=== PATIENT | female | born 1985 | race Caucasian/White ===

== ENCOUNTER 2018-07-23 19:44 | Emergency (ER) | payer BC ==
[2018-07-23] MEDS ORDERED: Sodium Chloride 0.9% 1000 ML 1,000 ML IV STA (20:37)
[2018-07-23] MEDS ORDERED: Phenergan 25 MG INJ IV ONE (20:37)
--- NOTE | 2018-07-23 20:37 | ERPHSYRPT ---
- History of Present Illness Time Seen by Provider: 07/23/18 20:33 Historian: patient Exam Limitations: no limitations Patient Subjective Stated Complaint: Abdominal pain/Vomitting Triage Nursing Assessment: Patient ambulated back to ED and transferred self to bed. Patient A+O X 3. Patient complains of upper abdominal pain. Patient states monday she had diarrhea and hasn't had a bowel movement since. Patient was seen in [facility] today for same issue and was given Zofran for N/V. Patient states she feels pressure in upper abdomen and keeps belching. Patient' s bowel sounds present X 4. Abdomen soft and round. Patient has been vomitting after every meal since Monday. Pain 02/20. Physician History: The patient is a 32-year-old obese female complaining of mild abdominal pain and vomiting that began on Monday or 3 days ago. On Monday she also had significant amounts of diarrhea. The diarrhea has resolved. Now she states she is bloated. She denies fever or chills. She is mildly lightheaded. Today she has only urinated 2 times. She has tried to drink small sips of fluid the becomes nauseated each time. She went to [facility] this morning and was given Zofran. Zofran has not really helped. Her past medical history is significant for depression, cholecystectomy, and tubal ligation. Timing/Duration: day(s) (3), gradual onset Activities at Onset: none Quality: aching Abdominal Pain Onset Location: epigastric Pain Radiation: no radiation Severity of Pain-Max: mild Severity of Pain-Current: mild Modifying Factors: Improves With: nothing Associated Symptoms: diarrhea, nausea, vomiting Previous symptoms: no prior history Allergies/Adverse Reactions: Sulfa (Sulfonamide Antibiotics) Allergy (Verified 07/23/18 20:10) Home Medications: Vilazodone HCl [Viibryd] 20 mg PO DAILY 07/23/18 [History] Hx Tetanus, Diphtheria Vaccination/Date Given: No Hx Influenza Vaccination/Date Given: Yes Hx Pneumococcal Vaccination/Date Given: No Immunizations Up to Date: Yes - Review of Systems Constitutional: No Fever, No Chills Eyes: No Symptoms Ears, Nose, & Throat: No Symptoms Respiratory: No Cough, No Dyspnea Cardiac: No Chest Pain, No Edema, No Syncope Abdominal/Gastrointestinal: Abdominal Pain, Nausea, Vomiting, Diarrhea Genitourinary Symptoms: No Dysuria Musculoskeletal: No Back Pain, No Neck Pain Skin: No Rash Neurological: No Dizziness, No Focal Weakness, No Sensory Changes Psychological: No Symptoms Endocrine: No Symptoms Hematologic/Lymphatic: No Symptoms Immunological/Allergic: No Symptoms All Other Systems: Reviewed and Negative - Past Medical History Pertinent Past Medical History: Yes Neurological History: No Pertinent History ENT History: No Pertinent History Cardiac History: No Pertinent History Respiratory History: Asthma Endocrine Medical History: No Pertinent History Musculoskeletal History: No Pertinent History GI Medical History: GERD, Irritable Bowel History: No Pertinent History Psycho-Social History: Depression Female Reproductive Disorders: Other Other Medical History: PCOS - Past Surgical History Past Surgical History: Yes Neuro Surgical History: No Pertinent History Cardiac: No Pertinent History Respiratory: No Pertinent History Gastrointestinal: Cholecystectomy Genitourinary: No Pertinent History Musculoskeletal: No Pertinent History Female Surgical History: Other Other Surgical History: Ablation, two cyst removed from ovaries - Social History Smoking Status: Never smoker Exposure to second hand smoke: No Drug Use: none Patient Lives Alone: No - Female History Hx Last Menstrual Period: Ablation 2012 Hx Now: No - Nursing Vital Signs Nursing Vital Signs: Initial Vital Signs Temperature 98.0 F 07/23/18 20:00 Pulse Rate 69 07/23/18 20:00 Respiratory Rate 18 07/23/18 20:00 Blood Pressure 107/59 07/23/18 20:00 O2 Sat by Pulse Oximetry 97 07/23/18 20:00 Pain Scale Pain Intensity 7 - Physical Exam General Appearance: no apparent distress, obese Eye Exam: PERRL/EOMI, eyes nml inspection Ears, Nose, Throat Exam: normal ENT inspection, pharynx normal, moist mucous membranes Neck Exam: normal inspection, non-tender, supple, full range of motion Respiratory Exam: normal breath sounds, lungs clear, No respiratory distress Cardiovascular Exam: regular rate/rhythm, normal heart sounds Gastrointestinal/Abdomen Exam: tenderness (epigastric) Pelvic Exam: not done Rectal Exam: not done Back Exam: normal inspection, normal range of motion, No CVA tenderness, No vertebral tenderness Extremity Exam: normal inspection, normal range of motion, pelvis stable Neurologic Exam: alert, oriented x 3, cooperative, normal mood/affect, nml cerebellar function, sensation nml, No motor deficits Skin Exam: normal color, warm, dry SpO2 Interpretation: normal SpO2: 97 Oxygen Delivery: Room Air - CT Exams Abdomen/Pelvis CT Interpretation: Tele-radiologist Report (per Dr Bear), No appendicitis, Other (appendicolith without appendicitis) Ordered Tests: Active Orders 24 hr Category Date Time Status Clean Catch Urine Specimen STAT Care 07/23/18 20:37 Active IV Insertion STAT Care 07/23/18 20:37 Active ABDOMEN AND PELVIS W/0 CONTRAS [CT] Stat Exams 07/23/18 20:37 Taken CBC W DIFF Stat Lab 07/23/18 20:50 Completed CMP Stat Lab 07/23/18 20:50 Completed CULTURE,URINE Stat Lab 07/23/18 20:50 Received HCG QUALITATIVE,SERUM Stat Lab 07/23/18 20:50 Completed LIPASE Stat Lab 07/23/18 20:50 Completed Lactic Acid Stat Lab 07/23/18 20:37 Completed UA W/RFX UR CULTURE Stat Lab 07/23/18 20:50 Completed Medication Summary Discontinued Medications Generic Name Dose Route Start Last Admin Trade Name Freq PRN Reason Stop Dose Admin Sodium Chloride 1,000 mls @ 999 mls/hr 07/23/18 20:37 07/23/18 21:01 Sodium Chloride 0.9% 1000 Ml IV 07/23/18 21:37 999 mls/hr .Q1H1M STA Administration Sodium Chloride Confirm 07/23/18 21:00 Sodium Chloride 0.9% 1000 Ml Administered 07/23/18 21:01 Dose 1,000 mls @ ud .ROUTE .STK-MED ONE Promethazine HCl 25 mg 07/23/18 20:37 07/23/18 21:02 Phenergan 25 Mg Inj IV 07/23/18 20:38 25 mg STAT ONE Administration Promethazine HCl Confirm 07/23/18 21:00 Phenergan 25 Mg Inj Administered 07/23/18 21:01 Dose 25 mg .ROUTE .STK-MED ONE Lab/Rad Data: Laboratory Result Diagrams 07/23/18 20:50 07/23/18 20:50 Laboratory Results 07/23/18 07/23/18 07/23/18 Range/Units 20:50 20:50 20:50 WBC (4.0-10.5) K/mm3 RBC (4.1-5.4) M/mm3 Hgb (12.0-16.0) gm/dl Hct (35-47) % MCV (78-100) fl MCH (26-32) pg MCHC (32-36) g/dl RDW (11.5-14.0) % Plt Count (150-450) K/mm3 MPV (6-9.5) fl Gran % (36.0-66.0) % Eos # (Auto) (0-0.5) Absolute Lymphs (auto) (1.0-4.6) Absolute Monos (auto) (0.0-1.3) Lymphocytes % (24.0-44.0) % Monocytes % (0.0-12.0) % Eosinophils % (0.00-5.0) % Basophils % (0.0-0.4) % Absolute Granulocytes (1.4-6.9) Basophils # (0-0.4) Sodium 137 (137-145) mmol/L Potassium 4.0 (3.5-5.1) mmol/L Chloride 103 (98-107) mmol/L Carbon Dioxide 28 (22-30) mmol/L Anion Gap 10.2 (5-15) MEQ/L BUN 9 (7-17) mg/dL Creatinine 0.52 (0.52-1.04) mg/dL Estimated GFR > 60.0 ML/MIN Glucose 103 (74-106) mg/dL Lactic Acid (0.4-2.0) Calcium 8.6 (8.4-10.2) mg/dL Total Bilirubin 0.50 (0.2-1.3) mg/dL AST 18 (14-36) U/L ALT 18 (0-35) U/L Alkaline Phosphatase 64 (38-126) U/L Serum Total Protein 7.5 (6.3-8.2) g/dL Albumin 3.9 (3.5-5.0) g/dL Lipase 84 (23-300) U/L Serum , Qual NEGATIVE (Negative) Urine Color YELLOW (YELLOW) Urine Appearance SLIGHTLY CLOUDY (CLEAR) Urine pH 8.0 (5-6) Ur Specific [place] 1.020 (1.005-1.025) Urine Protein NEGATIVE (Negative) Urine Ketones NEGATIVE (NEGATIVE) Urine Blood NEGATIVE (0-5) Julian/ul Urine Nitrite NEGATIVE (NEGATIVE) Urine Bilirubin NEGATIVE (NEGATIVE) Urine Urobilinogen 2 (0-1) mg/dL Ur Leukocyte Esterase NEGATIVE (NEGATIVE) Urine WBC (Auto) 6-10 (0-5) /HPF Urine RBC (Auto) 0-2 (0-2) /HPF U Epithel Cells (Auto) FEW (FEW) /HPF Urine Bacteria (Auto) RARE (NEGATIVE) /HPF Other Casts (Auto) NEGATIVE (NEGATIVE) /LPF Urine Mucus (Auto) SLIGHT (NEGATIVE) /HPF Urine Culture Reflexed YES (NO) Urine Glucose NEGATIVE (NEGATIVE) mg/dL 07/23/18 07/23/18 Range/Units 20:50 20:37 WBC 10.5 (4.0-10.5) K/mm3 RBC 4.16 (4.1-5.4) M/mm3 Hgb 11.2 L (12.0-16.0) gm/dl Hct 35.3 (35-47) % MCV 84.9 (78-100) fl MCH 26.9 (26-32) pg MCHC 31.7 L (32-36) g/dl RDW 13.8 (11.5-14.0) % Plt Count 255 (150-450) K/mm3 MPV 11.1 H (6-9.5) fl Gran % 45.6 (36.0-66.0) % Eos # (Auto) 0.40 (0-0.5) Absolute Lymphs (auto) 4.26 (1.0-4.6) Absolute Monos (auto) 1.02 (0.0-1.3) Lymphocytes % 40.5 (24.0-44.0) % Monocytes % 9.7 (0.0-12.0) % Eosinophils % 3.8 (0.00-5.0) % Basophils % 0.4 (0.0-0.4) % Absolute Granulocytes 4.81 (1.4-6.9) Basophils # 0.04 (0-0.4) Sodium (137-145) mmol/L Potassium (3.5-5.1) mmol/L Chloride (98-107) mmol/L Carbon Dioxide (22-30) mmol/L Anion Gap (5-15) MEQ/L BUN (7-17) mg/dL Creatinine (0.52-1.04) mg/dL Estimated GFR ML/MIN Glucose (74-106) mg/dL Lactic Acid 0.8 (0.4-2.0) Calcium (8.4-10.2) mg/dL Total Bilirubin (0.2-1.3) mg/dL AST (14-36) U/L ALT (0-35) U/L Alkaline Phosphatase (38-126) U/L Serum Total Protein (6.3-8.2) g/dL Albumin (3.5-5.0) g/dL Lipase (23-300) U/L Serum , Qual (Negative) Urine Color (YELLOW) Urine Appearance (CLEAR) Urine pH (5-6) Ur Specific [place] (1.005-1.025) Urine Protein (Negative) Urine Ketones (NEGATIVE) Urine Blood (0-5) Julian/ul Urine Nitrite (NEGATIVE) Urine Bilirubin (NEGATIVE) Urine Urobilinogen (0-1) mg/dL Ur Leukocyte Esterase (NEGATIVE) Urine WBC (Auto) (0-5) /HPF Urine RBC (Auto) (0-2) /HPF U Epithel Cells (Auto) (FEW) /HPF Urine Bacteria (Auto) (NEGATIVE) /HPF Other Casts (Auto) (NEGATIVE) /LPF Urine Mucus (Auto) (NEGATIVE) /HPF Urine Culture Reflexed (NO) Urine Glucose (NEGATIVE) mg/dL - Progress Progress: improved Progress Note: 07/23/18 22:11 given phenergan 25 mg and fluids IV, feeling better. Counseled pt/family regarding: lab results, diagnosis, rad results - Departure Time of Disposition: 22:12 Departure Disposition: Home Clinical Impression: Gastroenteritis Condition: Stable Critical Care Time: No Additional Instructions: You had an episode of vomiting and diarrhea for a few days. You were given Phenergan 25 mg and fluids by IV in the ER. The CT scan of the abdomen and pelvis did not show any acute findings. Continue to take Zofran 4 mg every 6 hours that you were given at [facility]. Began with a liquid diet and advance as tolerated. Follow-up with your primary medical doctor as needed.
[2018-07-23] MEDS ORDERED: Phenergan 25 MG INJ ONE (21:00)
[2018-07-23] MEDS ORDERED: Sodium Chloride 0.9% 1000 ML 1,000 ML ONE (21:00)
[2018-07-23 21:13] LABS: BASOPHIL % 0.4 % (0.0-0.4); Basophil (Absolute #) 0.04 (0-0.4); Eosinophil % 3.8 % (0.00-5.0); Granulocyte Absolute (ANC) 4.81 (1.4-6.9); Granulocytes % 45.6 % (36.0-66.0); Hematocrit 35.3 % (35-47); Hemoglobin 11.2 gm/dl (12.0-16.0); Lymphocyte (Absolute #) 4.26 (1.0-4.6); Lymphocytes % 40.5 % (24.0-44.0); Mean Cell Volume 84.9 fl (78-100); Mean Corpuscular Hemoglobin 26.9 pg (26-32); Mean Corpuscular Hgb Concent. 31.7 g/dl (32-36); Mean Platelet Volume 11.1 fl (6-9.5); Monocyte (Absolute #) 1.02 (0.0-1.3); Monocytes % 9.7 % (0.0-12.0); Platelet Count 255 K/mm3 (150-450); Red Blood Count 4.16 M/mm3 (4.1-5.4); Red Cell Distribution Width 13.8 % (11.5-14.0); White Blood Count 10.5 K/mm3 (4.0-10.5)
[2018-07-23 21:14] LABS: Appearance SLIGHTLY CLOUDY (CLEAR); Bilirubin NEGATIVE (NEGATIVE); Blood NEGATIVE Ery/ul (0-5); Glucose NEGATIVE (NEGATIVE); Ketones NEGATIVE (NEGATIVE); Leukocyte Esterase NEGATIVE (NEGATIVE); Nitrite NEGATIVE (NEGATIVE); Protein,Urine Dip NEGATIVE (Negative); Urobilinogen 2 mg/dL (0-1)
[2018-07-23 21:20] LABS: ALBUMIN 3.9 g/dL (3.5-5.0); ALKALINE PHOSPHATASE 64 U/L (38-126); ANION GAP 10.2 MEQ/L (5-15); BLOOD UREA NITROGEN 9 mg/dL (7-17); CHLORIDE 103 mmol/L (98-107); Calcium 8.6 mg/dL (8.4-10.2); Carbon Dioxide 28 mmol/L (22-30); Creatinine 1 0.52 mg/dL (0.52-1.04); Glucose 103 mg/dL (74-106); LIPASE 84 U/L (23-300); SGOT/AST 18 U/L (14-36); SGPT/ALT 18 U/L (0-35); SODIUM 137 mmol/L (137-145); Total Protein 7.5 g/dL (6.3-8.2)
[2018-07-23 22:31] VITALS: BP 99/56; PULSE 100; O2SAT 99
--- NOTE | 2018-07-24 09:07 | XRAY ---
Indication: Epigastric pain, nausea, vomiting, diarrhea. Multiple contiguous axial images obtained through the abdomen and pelvis without contrast as ordered. Comparison: None Lung bases are clear. Heart is not enlarged. Noncontrasted stomach and bowel loops appear nonobstructed. Appendicolith without appendicitis. No free fluid/air. Previous cholecystectomy. Remaining liver, pancreas, spleen, adrenal glands, kidneys, ureters, bladder, uterus, and aorta appear unremarkable for noncontrast exam. Osseous structures intact. No ventral or inguinal hernias. Impression: 1. Appendicolith without appendicitis. 2. Remaining CT abdomen/pelvis without contrast exam is negative. CT DI 23.69
== END 2018-07-23 22:32 | disposition home or self-care (01) ==
LOC: ED 19:44
DX: K52.9 Noninfective gastroenteritis and colitis, unspecified (principal); R10.13 Epigastric pain; R11.2 Nausea with vomiting, unspecified; R42 Dizziness and giddiness; Z79.899 Other long term (current) drug therapy
CPT/HCPCS: 36000; 36415; 74176; 80053; 81001; 81025; 83605; 83690; 85025; 87086; 96360; 96374; 99284; J2550